=== PATIENT | male | born 1960 | race Caucasian/White ===

== ENCOUNTER → 2017-05-03 | Outpatient (CLI) | payer OTHER ==
[~2017-05-03] MED LIST: ACET325C PO; ALPR.25 PO; CELE20TA PO; DUONI NEB; GLYC1TAB17 PO; GNP150TA; SERO100T PO; SERO200T PO; TYLE325T PO; ZANT150T2 PO
--- NOTE | 2017-05-03 16:17 | RADRPT ---
EXAM DATE/TIME: 05/03/2017 15:48 [place] COMPARISON: CHEST PA & LAT, December 03, 2015, 13:56. INDICATIONS : Bronchiectasis. MEDICAL HISTORY : Chronic obstructive pulmonary disease. SURGICAL HISTORY : Tracheostomy. G-tube. ENCOUNTER: Initial ACUITY: 1 day PAIN SCORE: 0/10 LOCATION: Bilateral chest FINDINGS: The tracheostomy tube is in good position. The heart and mediastinal contours are within normal limits. There are small areas of platelike atelectasis in the lung bases. These are both stable compared to p revious dated 12/03/15. There are mild COPD changes. The lungs are otherwise clear. The visualized osseous structures are intact. CONCLUSION: 1. Small areas of platelike atelectasis in the lung bases and COPD. Stable compared to previous exam. Armando Desai MD on May 03, 2017 at 16:14 Board Certified Radiologist. This report was verified electronically.
== END ==
LOC: HRAD 15:24
PROVIDERS: ATTEND Internal Medicine Sleep Medicine
DX: R06.09 Other forms of dyspnea (principal)
CPT/HCPCS: 71020